=== PATIENT | male | born 1940 | race Caucasian/White ===

== ENCOUNTER → 2016-10-21 | Outpatient (CLI) | payer MEDICARE, BC ==
[2016-10-21 10:22] LABS: CREATININE 0.91 mg/dl (0.61-1.24)
== END | disposition home or self-care (01) ==
LOC: LAB 09:01
PROVIDERS: ATTEND Internal Medicine Interventional Cardiology
DX: Z01.818 Encounter for other preprocedural examination (principal)
CPT/HCPCS: 82565; 84520

== ENCOUNTER → 2017-03-26 | Outpatient (CLI) | payer MEDICARE, BC ==
[~2017-03-26] MED LIST: IOHEXOL 100 ML ONE; IOHEXOL 350MG/ML 50 ML BTL ONE; NITROGLYCERIN AEROSOL (4.9 GM) ONE; SOD CHLORIDE 0.9% 100 ML ONE
[2017-03-26 10:35] LABS: CREATININE 0.94 mg/dl (0.61-1.24)
--- NOTE | 2017-03-26 16:49 | RADRPT ---
PROCEDURE: CTA of the Chest and Coronary Arteries with contrast. CLINICAL INDICATION: Coronary artery bypass surgery, septal ischemia, chest pain. COMPARISON: No previous relevant images are available for comparison. TECHNIQUE: Multiphasic ECG-gated volumetric acquisition for CTA of the Chest and CTA of the coronary arteries performed with intravenous contrast on a high-resolution multi detector scanner with multi phasic reconstructions. Multiplanar reconstructions, three-dimensional reconstructions, as well as m aximal intensity projection images are produced and reviewed. One or more of the following dose redu ction techniques were used: Automated exposure control; Adjustment of the mA and/or kV according to patient size; Use of iterative reconstruction technique; ECG dose modulation. CTDI = 8, 61, 92 mGy. DLP = 3420 mGy-cm. Stenosis classification of vessels greater than 1.5 mm in diameter: None 0%, Minimal 1-24%, Mild 25- 49%, Moderate 50-69%, Severe 70-99%, Occluded 100% CONTRAST: 100 mL of Omnipaque 350 intravenously without adverse event. FINDINGS: Overall exam quality and angiographic enhancement: Excellent angiographic enhancement. Respiratory m otion artifact is present. Origins and course of the coronary arteries: Normal. Coronary artery system dominance pattern: Right. Not fully diagnostic segments due to artifacts: Respiratory motion artifact: Proximal LCX Coronary artery bypass grafts: HEATON: Mobilized to bypass to the distal LAD with an attenuated appearance equal in caliber to the di stal target vessel but without focal stenosis. SRINI: In situ SVG1: Supplies the lateral marginal branch. A few noncalcified plaques are present which produce 50% stenosis in reference to the normal segments of the bypass graft but 0% stenosis in reference to th e target vessel. SVG2: Supplies a distal diagonal branch with a jump to the mid LAD. Minimal irregularities without f ocal stenosis. SVG3: Supplies the posterior descending artery. Near occlusion in the midsegment of the bypass graft over a length of 3 mm. [place] coronary arteries: RCA: Minimal calcified irregularities of the proximal segment of the vessel. Acute marginal branch e nhances normally. Mid - distal segments of the vessel are occluded by noncalcified plaque with recon stitution distally. Severe stenosis in the distal segment of the vessel. Retrograde enhancement of t he most distal aspect of the vessel from bypass graft. PLB: Small-caliber vessel appears widely patent. PDA: Probable mild - moderate stenosis of the origin of the vessel proximal to the bypass graft; dif ficult to visualize due to small caliber and beam hardening artifact from calcified plaque. LM: Short segment vessel with a 25% stenosis distally due to calcified and noncalcified plaque. RI: Absent LAD: Multifocal moderate - severe stenoses within the proximal and mid segments of the vessel proxim al to the HEATON bypass graft anastomosis. 20 - 25% stenosis due to focal calcified plaque just distal to the bypass graft anastomosis. Remainder of the distal segment of the vessel appears widely paten t. Diags: Minimal - mild diffuse irregularities of the first and second diagonal branches LCX: Focal loss of visualization within the proximal segment of vessel due to respiratory motion art ifact. Mid and distal segments of the vessel are widely patent. OMs: Minimal irregularities of these small caliber vessels. Lateral marginal branch supplied by a sa phenous vein graft; the more proximal segment of the lateral marginal branch prior to receiving the bypass graft is occluded. Pericardium: Normal. Pericardial effusion: None. Heart size: Normal. Aortic valve: Trileaflet morphology. Normal diastolic coaptation. No evidence of thickening or calci fication. Mitral valve: Normal morphology. No evidence of prolapse on systolic images. No evidence of thickeni ng or calcification. Myocardial attenuation: Subendocardial low attenuation changes with thinning sinvolving the basal, m id, distal segments of the anterior wall, left ventricular apex, apical segment of the interventricu lar septum compatible with prior ischemic injury. Intracardiac enhancement: No left-sided filling defects to suggest the presence of mass or thrombus . Left atrial appendage is well opacified. Extracardiac findings: Visualized thoracic aorta: Normal caliber. Mild atherosclerotic changes. Pulmonary arteries: Normal caliber. No evidence of central filling defect. Pulmonary veins: Conventional pulmonary venous return. Lungs: No acute appearing air space infiltrates. No suspicious pulmonary nodules. Visualized mediastinum: No mass or fluid collection. No lymphadenopathy. Visualized osseous structures: Mild degenerative changes of the thoracic spine with small Schmorl's nodes. 6 mm mid thoracic bone island. Visualized upper abdomen: Normal. Other findings: None. IMPRESSION: Coronary artery bypass grafts: HEATON: Mobilized to bypass to the distal LAD with an attenuated appearance equal in caliber to the di stal target vessel without focal stenosis. SRINI: In situ SVG1: Supplies the lateral marginal branch. A few noncalcified plaques are present which produce 50% stenosis in reference to the normal segments of the bypass graft but 0% stenosis in reference to th e target vessel. SVG2: Supplies a distal diagonal branch with a jump to the mid LAD. Minimal irregularities without f ocal stenosis. SVG3: Supplies the posterior descending artery. Near occlusion in the midsegment of the bypass graft over a length of 3 mm. [place] coronary arteries: RCA: Minimal calcified irregularities of the proximal segment of the vessel. Acute marginal branch e nhances normally. Mid - distal segments of the vessel are occluded by noncalcified plaque with recon stitution distally. Severe stenosis in the distal segment of the vessel. Retrograde enhancement of t he most distal aspect of the vessel from bypass graft. PLB: Small-caliber vessel appears widely patent. PDA: Probable mild - moderate stenosis of the origin of the vessel proximal to the bypass graft; dif ficult to visualize due to small caliber and beam hardening artifact from calcified plaque. LM: Short segment vessel with a 25% stenosis distally due to calcified and noncalcified plaque. RI: Absent LAD: Multifocal moderate - severe stenoses within the proximal and mid segments of the vessel proxim al to the HEATON bypass graft anastomosis. 20 - 25% stenosis due to focal calcified plaque just distal to the bypass graft anastomosis. Remainder of the distal segment of the vessel appears widely paten t. Diags: Minimal - mild diffuse irregularities of the first and second diagonal branches LCX: Focal loss of visualization within the proximal segment of vessel due to respiratory motion art ifact. Mid and distal segments of the vessel are widely patent. OMs: Minimal irregularities of these small caliber vessels. Lateral marginal branch supplied by a sa phenous vein graft; the more proximal segment of the lateral marginal branch prior to receiving the bypass graft is occluded. RPTAT: AADD .Tru Broussard MD, MD Date Time Electronically viewed and signed by .Tru Broussard MD, on 03/26/2017 16:49 .B/
== END | disposition home or self-care (01) ==
LOC: C/S 08:54
PROVIDERS: ATTEND Internal Medicine Interventional Cardiology
DX: I25.9 Chronic ischemic heart disease, unspecified (principal); Z95.1 Presence of aortocoronary bypass graft
CPT/HCPCS: 75571; 75574; 82565; 84520; Q9967